=== PATIENT | male | born 1955 | race Caucasian/White ===

== ENCOUNTER → 2024-01-29 | Outpatient (CLI) | payer MEDICARE, BC ==
--- NOTE | 2024-01-30 08:20 | MR ---
EXAMINATION TYPE: MR lumbar spine wo con DATE OF EXAM: 01/29/2024 6:42 AM CLINICAL INDICATION:Male, 68 years old with history of M54.42 LUMBAGO WITH SCIATICA, LEFT SIDE; [facility], COMPARISON: None TECHNIQUE: Multi planar, multi sequence imaging was performed utilizing: T1-weighted, T2-weighted, a nd turbo inversion recovery imaging of the lumbar spine. IV Contrast: cc . (None if empty) FINDINGS: Alignment: The lumbar vertebral bodies have preserved heights and alignment. Cord: The conus medullaris and the distal spinal cord appear unremarkable with regards to their signa l intensity and morphology. Bones/Discs: Mild degeneration changes throughout the spine with osteophyte formation and facet joint arthropathy. Height T1 signal L4 vertebral body probable vertebral body hemangioma versus focal fatt y marrow. Multilevel disc desiccation is present. T12-L1: No evidence of significant spinal canal stenosis or neural foraminal stenosis. L1-L2: No evidence of significant spinal canal stenosis or neural foraminal stenosis. L2-L3: No evidence of significant spinal canal stenosis or neural foraminal stenosis. L3-L4: No evidence of significant spinal canal stenosis or neural foraminal stenosis. L4-L5: Disc bulge and facet joint arthropathy result in mild spinal canal and moderate to severe left neural foraminal stenosis with the left facet joint displacing the left exiting nerve and mild right neural foraminal stenosis. L5-S1: The disc is rounded posterior morphology without significant spinal canal stenosis. Facet join t arthropathy with mild bilateral neural foraminal stenosis. No significant spinal canal or neural foraminal stenosis in the remainder of the visualized levels. Other findings: None. IMPRESSION: 1. No definitive evidence of disc herniation or significant spinal canal stenosis. 2. Mild disc degeneration with associated osteoarthritic changes. 3. Facet joint arthropathy displaces the left L4-L5 nerve posteriorly to patient's symptoms.
== END | disposition home or self-care (01) ==
LOC: RADMRIMAIN 05:55
PROVIDERS: ATTEND Family Medicine
DX: R53.1 Weakness (principal); M54.42 Lumbago with sciatica, left side; M47.816 Spondylosis without myelopathy or radiculopathy, lumbar region
CPT/HCPCS: 72148

== ENCOUNTER 2024-10-15 20:29 | Emergency (ER) | payer MEDICARE, BC ==
[2024-10-15 20:35] VITALS: RESP 18; TEMP 98
--- NOTE | 2024-10-15 21:05 | XR ---
EXAMINATION TYPE: XR KUB DATE OF EXAM: 10/15/2024 9:00 PM COMPARISON: None available. CLINICAL INDICATION: Male, 69 years old with history of Constipation; [facility] TECHNIQUE: One radiographic view of the abdomen was obtained. FINDINGS: The bowel gas pattern is nonspecific without dilated loops of small or large bowel. . Fecal material and gas are demonstrated throughout the colon and rectum. There is no evidence for organomegaly or pneumoperitoneum. The osseous structures are intact. No ab normal calcifications are present. Surgical clips are upper quadrant suggesting previous cholecystect jesika. IMPRESSION: Nonspecific bowel gas pattern without radiographic evidence for acute process. [facility], , 10/15/2024 9:03 PM
--- NOTE | 2024-10-15 21:22 | ED ---
General Adult HPI - General Chief complaint: Recheck/Abnormal Lab/Rx Stated complaint: Constipated Time Seen by Provider: 10/15/24 20:36 Source: patient, RN notes reviewed Mode of arrival: ambulatory Limitations: no limitations - History of Present Illness Initial comments: This is a 69-year-old male who presents to the emergency department for constipation. States that he has not had a normal bowel movement in 8 to 9 days. He is only passing small pieces of stool every now and then. Reports some pressure in the rectal area, but denies any abdominal pain, nausea, or vomiting. He is still passing gas. Believes that this is opioid-induced due to having morphine and hydrocodone during cancer treatment. He just finished the cancer treatment, however his morphine dose was just increased. He has been on Colace and just added Senokot today. He also tried 1 dose of MiraLAX and prune juice as well as a one-time enema and suppository at home today without much relief. - Related Data Previous Rx's Medication Instructions Recorded Naloxegol Oxalate [Movantik] 25 mg PO DAILY #20 tablet 10/16/24 Allergies Allergy/AdvReac Type Severity Reaction Status Date / Time No Known Allergies Allergy Verified 10/15/24 20:34 Review of Systems ROS Statement: Those systems with pertinent positive or pertinent negative responses have been documented in the HPI. ROS Other: All systems not noted in ROS Statement are negative. Past Medical History Past Medical History: Cancer, Diabetes Mellitus History of Any Multi-Drug Resistant Organisms: None Reported Past Surgical History: Cholecystectomy Past Psychological History: No Psychological Hx Reported Smoking Status: Former smoker Past Alcohol Use History: None Reported Past Drug Use History: None Reported General Exam Limitations: no limitations General appearance: alert, in no apparent distress Head exam: Present: atraumatic, normocephalic, normal inspection Respiratory exam: Present: normal lung sounds bilaterally. Absent: respiratory distress, wheezes, rales, rhonchi, stridor Cardiovascular Exam: Present: regular rate, normal rhythm, normal heart sounds. Absent: systolic murmur, diastolic murmur, rubs, gallop, clicks GI/Abdominal exam: Present: soft, normal bowel sounds. Absent: distended, tenderness, guarding, rebound, rigid Rectal exam: Present: fecal impaction, hemorrhoids Neurological exam: Present: alert, oriented X3, CN II-XII intact Psychiatric exam: Present: normal affect, normal mood Skin exam: Present: warm, dry, intact, normal color. Absent: rash Course Vital Signs 10/15/24 10/15/24 10/15/24 20:32 21:00 22:15 Temperature 98 F Pulse Rate 90 84 83 Respiratory 18 18 18 Rate Blood Pressure 134/72 103/69 133/66 O2 Sat by Pulse 99 97 97 Oximetry 10/16/24 02:35 Temperature Pulse Rate 87 Respiratory 18 Rate Blood Pressure 138/68 O2 Sat by Pulse 97 Oximetry Procedures - Rectal Disimpaction Consent Obtained: verbal consent Indication: fecal impaction Procedural Sedation: No Sedation/Analgesia: none Technique: manual disimpaction with gloved finger Medical Decision Making - Medical Decision Making This is a 69 year old male who presents to the emergency department for constipation. Was pt. sent in by a medical professional or institution? @ -No Did you speak to anyone other than the patient for history? @ -No Did you review nursing and triage notes? @ -Yes, and I agree, it is accurate with regards to the patient's symptoms. Were old charts reviewed? @ -No Differential Diagnosis? @ -Constipation, bowel obstruction, diverticulitis, IBS, ileus, this is not meant to be an all-inclusive list. EKG interpreted by me (3pts min.)? @ -Not obtained X-rays interpreted by me (1pt min.)? @ -KUB x-ray obtained. My interpretation identifies no dilation of the bowel loops. CT interpreted by me (1pt min.)? @ -CT scan of the abdomen and pelvis obtained. My interpretation identifies a rectal impaction. U/S interpreted by me (1pt. min.)? @ -Not obtained What testing was considered but not performed? (CT, X-rays, U/S, labs)? Why? @ -None What meds were considered but not given? Why? @ -None Did you discuss the management of the patient with other professionals? @ -No Did you reconcile home meds? @ -No Was smoking cessation discussed for >3mins.? @ -No Was critical care preformed (if so, how long)? @ -No Were there social determinants of health that impacted care today? How? (Homelessness, low income, unemployed, alcoholism, drug addiction, transportation, low edu. Level, literacy, decrease access to med. care, fdc, rehab)? @ -No Was there de-escalation of care discussed even if they declined? (Discuss DNR or withdrawal of care, Hospice)? @ -No What co-morbidities impacted this encounter? (DM, HTN, Smoking, COPD, CAD, Cancer, CVA, Hep., AIDS, mental health diagnosis, sleep apnea, morbid obesity)? @ -Cancer Was patient admitted / discharged? @ -Discharged. Patient's abdomen was soft and nontender on exam. KUB x-ray obtained revealing a nonspecific bowel gas pattern and no evidence for acute process. Fecal and gas are demonstrated throughout the colon, however there is no area of impaction specifically. Milk molasses enema administered. Patient only produced a small amount of stool. He was also given IM Relistor for opio id-induced constipation. We then proceeded with a more in depth workup due to patient's age and cancer history. Lab work demonstrates mildly decreased hemoglobin, however we have no prior values for comparison. He also has hypoglycemia with a glucose of 73. Patient reports that he does not eat much due to painful mouth lesions from the cancer. CT scan of the abdomen and pelvis demonstrates stool impaction at the rectum with mild wall thickening and inflammatory changes suggestive of stercoral colitis. There is no sign of abscess formation or perforation. There is no leukocytosis or elevation of lactic acid. Manual disimpaction was performed. We were able to get out some stool. Discussed with patient that he needs to be on an aggressive stool regimen with the fecal impaction leading to stercoral colitis. He just started the Senokot which I advised taking with MiraLAX. Given the opioid-induced factor, Movantik was prescribed to see if that will help with his symptoms. However, advised that medication for opioid-induced constipation specifically is not always immediately covered by insurance and that may be the case with this medication. In which case, he will need to discuss prior authorization with his PCP or oncologist. Patient was given strict return parameters and advised to have close follow-up with his PCP. Patient discharged home in stable condition. Case discussed with ED attending Dr. Ramos. Return precautions reviewed in depth, the patient is instructed to return to the emergency department with any new, worsening, or concerning symptoms. Patient verbalized understanding. Undiagnosed new problem with uncertain prognosis? @ -None Drug Therapy requiring intensive monitoring for toxicity (Heparin, Nitro, Ins ulin, Cardizem)? @ -None Were any procedures done? @ -Rectal disimpaction Diagnosis/symptom? @ -Stercoral colitis, rectal impaction Acute, or Chronic, or Acute on Chronic? @ -Acute Uncomplicated (without systemic symptoms) or Complicated (systemic symptoms)? @ -Uncomplicated Side effects of treatment? @ -None Exacerbation, Progression, or Severe Exacerbation] @ -Not applicable Poses a threat to life or bodily function? @ -Unlikely - Lab Data Result diagrams: 10/16/24 00:04 10/16/24 00:04 Lab Results 10/16/24 10/16/24 10/16/24 Range/Units 00:04 00:04 00:04 WBC 6.4 (3.8-10.6) k/uL RBC 3.28 L (4.30-5.90) m/uL Hgb 10.8 L (13.0-17.5) gm/dL Hct 31.6 L (39.0-53.0) % MCV 96.5 (80.0-100.0) fL MCH 32.8 (25.0-35.0) pg MCHC 34.0 (31.0-37.0) g/dL RDW 20.0 H (11.5-15.5) % Plt Count 335 (150-450) k/uL MPV 7.3 Neutrophils % 89 % Lymphocytes % 3 % Monocytes % 6 % Eosinophils % 1 % Basophils % 0 % Neutrophils # 5.7 (1.3-7.7) k/uL Lymphocytes # 0.2 L (1.0-4.8) k/uL Monocytes # 0.4 (0-1.0) k/uL Eosinophils # 0.1 (0-0.7) k/uL Basophils # 0.0 (0-0.2) k/uL Hyperchromasia Slight Poikilocytosis Moderate Anisocytosis Moderate Macrocytosis Slight Sodium 135 L (137-145) mmol/L Potassium 3.5 (3.5-5.1) mmol/L Chloride 102 (98-107) mmol/L Carbon Dioxide 24 (22-30) mmol/L Anion Gap 9 mmol/L BUN 12 (9-20) mg/dL Creatinine 0.54 L (0.66-1.25) mg/dL Est GFR (CKD-EPI)AfAm >90 (>60 ml/min/1.73 sqM) Est GFR (CKD-EPI)NonAf >90 (>60 ml/min/1.73 sqM) Glucose 73 L (74-99) mg/dL Plasma Lactic Acid Santos 0.9 (0.7-2.0) mmol/L Calcium 9.0 (8.4-10.2) mg/dL Magnesium 1.8 (1.6-2.3) mg/dL Total Bilirubin 0.5 (0.2-1.3) mg/dL AST 27 (17-59) U/L ALT 21 (4-49) U/L Alkaline Phosphatase 106 (38-126) U/L Total Protein 5.5 L (6.3-8.2) g/dL Albumin 3.3 L (3.5-5.0) g/dL - Radiology Data Radiology results: report reviewed, image reviewed Disposition Clinical Impression: Stercoral colitis, Fecal impaction in rectum Disposition: HOME SELF-CARE Instructions (If sedation given, give patient instructions): Constipation (ED), High Fiber Diet (ED), Colitis (ED) Additional Instructions: Return to the emergency department with any new, worsening, or concerning symptoms. Continue taking the Senokot and start using MiraLAX daily. If you need to continue taking the opioids, you can brick picker the medication prescribed. However, if your insurance does not cover this you may need a preauthorization from your primary care provider or oncologist. Follow up with your primary care provider in 1-2 days. Prescriptions: Naloxegol Oxalate [Movantik] 25 mg PO DAILY #20 tablet Is patient prescribed a controlled substance at d/c from ED?: No Referrals: Terrence Herron DO [Primary Care Provider] - 1-2 days Time of Disposition: 02:30
[2024-10-15] MEDS: METHYLNALTREXONE BROMIDE 12 MG/0.6 ML VIAL SQ ONE (21:40)
[2024-10-15] MEDS ORDERED: IOPAMIDOL CONTRAST (ORAL USE) VIAL PO PRN ×2 (23:28→23:34)
[2024-10-16] MEDS: SODIUM CHLORIDE 0.9% 1,000 ML IV STA (00:01)
[2024-10-16] MEDS: SALT AND SODA MOUTHWASH 1,000 ML PO STA (00:18)
[2024-10-16 00:24] LABS: Anisocytosis Moderate; Basophils % (A) 0 %; Eosinophils # (A) 0.1 k/uL (0-0.7); Eosinophils % (A) 1 %; HCT 31.6 % (39.0-53.0); HGB 10.8 gm/dL (13.0-17.5); Hyperchromasia Slight; Lymphocytes # (A) 0.2 k/uL (1.0-4.8); Lymphocytes % (A) 3 %; MCH 32.8 pg (25.0-35.0); MCV 96.5 fL (80.0-100.0); Macrocytosis Slight; Mean Platelet Volume 7.3; Monocytes # (A) 0.4 k/uL (0-1.0); Monocytes % (A) 6 %; Neutrophils # (A) 5.7 k/uL (1.3-7.7); Neutrophils % (A) 89 %; Platelet Count 335 k/uL (150-450); Poikilocytosis Moderate; RBC 3.28 m/uL (4.30-5.90); WBC 6.4 k/uL (3.8-10.6)
[2024-10-16 00:51] LABS: ALT 21 U/L (4-49); AST 27 U/L (17-59); African American GFR (CKD) >90 (>60 ml/min/1.73 sqM); Albumin 3.3 g/dL (3.5-5.0); Alkaline Phosphatase 106 U/L (38-126); Anion Gap 9 mmol/L; Blood Urea Nitrogen 12 mg/dL (9-20); Carbon Dioxide 24 mmol/L (22-30); Chloride 102 mmol/L (98-107); Glucose 73 mg/dL (74-99); Magnesium 1.8 mg/dL (1.6-2.3); Non-African American GFR(CKD) >90 (>60 ml/min/1.73 sqM); Potassium 3.5 mmol/L (3.5-5.1); Sodium 135 mmol/L (137-145); Total Bilirubin 0.5 mg/dL (0.2-1.3); Total Protein 5.5 g/dL (6.3-8.2)
--- NOTE | 2024-10-16 01:17 | CT ---
EXAM: CT Abdomen and Pelvis Without Intravenous Contrast CLINICAL HISTORY: ITS.REASON CT Reason: Constipation, cancer patient TECHNIQUE: Axial computed tomography images of the abdomen and pelvis without intravenous contrast. CTDI is 10.4 mGy and DLP is 606.9 mGy-cm. This CT exam was performed using one or more of the following dose reduction techniques: automated exposure control, adjustment of the mA and/or kV according to patient size, and/or use of iterative reconstruction technique. COMPARISON: No relevant prior studies available. FINDINGS: ABDOMEN: Liver: Unremarkable. Gallbladder and bile ducts: Removed. Pancreas: No ductal dilation. Spleen: Unremarkable. Adrenals: Unremarkable. Kidneys and ureters: No obstructing stones. No hydronephrosis. Stomach and bowel: No bowel obstruction. Stool impaction of the rectum with mild wall thickening and inflammatory changes PELVIS: Appendix: No evidence of appendicitis. Bladder: No stones. Reproductive: Mildly enlarged. ABDOMEN and PELVIS: Intraperitoneal space: Unremarkable. Bones/joints: No acute fractures. Soft tissues: Unremarkable. Vasculature: No abdominal aortic aneurysm. Lymph nodes: No enlarged lymph nodes. IMPRESSION: Stool impaction of the rectum with mild wall thickening and inflammatory changes, consistent with stercoral colitis
[2024-10-16 02:37] VITALS: BP 138/68; PULSE 87
== END 2024-10-16 03:06 | disposition home or self-care (01) ==
LOC: EC 20:29
DX: K56.41 Fecal impaction (principal); K52.89 Other specified noninfective gastroenteritis and colitis; Z87.891 Personal history of nicotine dependence
CPT/HCPCS: 36415; 80053; 83605; 83735; 85025; 74018; 74176; 99284; 96372; 96360; J2212